=== PATIENT | female | born 2000 | race Caucasian/White ===

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

== ENCOUNTER 2021-12-10 12:34 | Outpatient (CLI) | payer MEDICAID ==
[~2021-12-10] VITALS: Ht 152.4 cm; Wt 82.3 kg
[~2021-12-10 12:34] MED LIST changes: +CEPH500C PO; +ONDA8TAB13 PO; +PHEN-639 PO; +VIBRYD
[2021-12-10 12:52] VITALS: BP 144/90
[2021-12-10 13:16] VITALS: BP 138/96
[2021-12-10 13:16] LABS: BACTERIA,URINE NEGATIVE /HPF; BILIRUBIN,URINE NEGATIVE (NEGATIVE); CLARITY,URINE SL CLOUDY; COLOR,URINE YELLOW; GLUCOSE, URINE (UA) NEGATIVE (NEGATIVE); KETONES,URINE 3+ (NEGATIVE); LEUKOCYTE ESTERASE ,URINE TRACE (NEGATIVE); NITRITE,URINE NEGATIVE (NEGATIVE); PROTEIN,URINE 1+ (NEGATIVE); RBC,URINE 0-2 /HPF
[2021-12-10 13:17] LABS: BASOPHILS % (AUTO) 0 % (0-10); EOSINOPHILS # (AUTO) 0.1 10^3/uL (0.0-0.3); EOSINOPHILS % (AUTO) 1 % (0-10); HEMATOCRIT 35 % (35-52); HEMOGLOBIN 11.6 g/dL (11.5-16.0); LYMPHOCYTES # (AUTO) 1.5 10^3/uL (1.0-4.0); LYMPHOCYTES % (AUTO) 11 % (12-44); MEAN CORPUSCULAR HEMOGLOBIN 26 pg (25-34); MEAN CORPUSCULAR HGB CONC 33 g/dL (32-36); MEAN CORPUSCULAR VOLUME 79 fL (80-99); MEAN PLATELET VOLUME 10.6 fL (9.0-12.2); MONOCYTES # (AUTO) 0.7 10^3/uL (0.0-1.0); MONOCYTES % (AUTO) 5 % (0-12); NEUTROPHILS % (AUTO) 82 % (42-75); PLATELET COUNT 292 10^3/uL (130-400); WHITE BLOOD COUNT 13.4 10^3/uL (4.3-11.0)
[2021-12-10 13:17] LABS: AMORPHOUS SEDIMENT,UR FEW AMOR URATES /LPF
[2021-12-10 13:42] LABS: ALBUMIN 3.2 GM/DL (3.2-4.5); POTASSIUM 3.7 MMOL/L (3.6-5.0)
[2021-12-10 13:46] LABS: BILIRUBIN,TOTAL 0.4 MG/DL (0.1-1.0)
[2021-12-10 13:48] LABS: CREATININE SERUM 0.59 MG/DL (0.60-1.30)
[2021-12-10 13:51] LABS: URIC ACID 5.9 MG/DL (2.6-7.2)
[2021-12-10] MEDS ORDERED: D5 LR IV SOLUTION 1,000 ML IV SCH (14:15)
[2021-12-10 14:25] VITALS: BP 137/85
[2021-12-10 15:40] VITALS: BP 141/78
--- NOTE | 2021-12-11 08:16 | Physician Query-Final Dx ---
GARCIA,12/11/21 0816: Clinic Account Progress/Dx Physician Query: Please give diagnosis Please include # weeks gestation Date of Service Dec 10, 2021 at 12:34 SANTI DOE MD 12/11/21 2016: Clinic Account Progress/Dx DIAGNOSIS: Diagnosis Gestational Hypertension 35 weeks gestation Negative preeclampsia labs GARCIA,JunDec 11, 2021 08:16 SANTI DOE MD Dec 11, 2021 20:16
== END 2021-12-10 16:03 | disposition home or self-care (01) ==
LOC: WSo 12:34
PROVIDERS: ATTEND Family Medicine
DX: O13.3 Gestational [pregnancy-induced] hypertension without significant proteinuria, third trimester (principal); Z3A.35 35 weeks gestation of pregnancy
CPT/HCPCS: 36415; 80053; 81000; 82570; 83615; 84156; 84550; 85025

== ENCOUNTER 2022-01-06 15:18 | Inpatient (IN) | payer MEDICAID ==
[~2022-01-06] VITALS: Ht 152 cm; Wt 87.5 kg
[2022-01-06] VITALS (35 sets, daily range): BP systolic 101–147; BP diastolic 50–94
[2022-01-06] MEDS ORDERED: MINERAL OIL 30 ML TOP PRN (15:45)
[2022-01-06] MEDS ORDERED: LIDOCAINE/EPI 2% 1:200,00 (XYLOCAINE) 10 ML VIAL INJ PRN (15:45)
[2022-01-06 16:24] LABS: BILIRUBIN,URINE NEGATIVE (NEGATIVE); CLARITY,URINE CLEAR; COLOR,URINE YELLOW; GLUCOSE, URINE (UA) NEGATIVE (NEGATIVE); KETONES,URINE NEGATIVE (NEGATIVE); LEUKOCYTE ESTERASE ,URINE TRACE (NEGATIVE); NITRITE,URINE NEGATIVE (NEGATIVE); PROTEIN,URINE TRACE (NEGATIVE)
[2022-01-06 16:30] LABS: BACTERIA,URINE NEGATIVE /HPF; RBC,URINE 0-2 /HPF; SQUAMOUS EPITHELIAL CELL,UR 0-2 /HPF; WBC,URINE 0-2 /HPF
[2022-01-06 16:42] LABS: AMPHETAMINE SCREEN, URINE NEGATIVE (NEGATIVE); BARBITURATE SCREEN URINE NEGATIVE (NEGATIVE); BENZODIAZEPINES SCREEN URINE NEGATIVE (NEGATIVE); CANNABINOID SCREEN, URINE NEGATIVE (NEGATIVE); COCAINE SCREEN URINE NEGATIVE (NEGATIVE); METHADONE STAT NEGATIVE (NEGATIVE); OPIATE SCREEN URINE NEGATIVE (NEGATIVE); OXYCODONE STAT NEGATIVE (NEGATIVE); PROPOXYPHENE STAT NEGATIVE (NEGATIVE); TRICYCLIC ANTIDEPRESSANTS SCRE NEGATIVE (NEGATIVE)
[2022-01-06] MEDS: D5 LR IV SOLUTION 1,000 ML IV SCH (16:45)
[2022-01-06 16:59] LABS: BASOPHILS % (AUTO) 0 % (0-10); EOSINOPHILS # (AUTO) 0.1 10^3/uL (0.0-0.3); EOSINOPHILS % (AUTO) 1 % (0-10); HEMATOCRIT 38 % (35-52); HEMOGLOBIN 12.5 g/dL (11.5-16.0); LYMPHOCYTES # (AUTO) 2.1 10^3/uL (1.0-4.0); LYMPHOCYTES % (AUTO) 14 % (12-44); MEAN CORPUSCULAR HEMOGLOBIN 25 pg (25-34); MEAN CORPUSCULAR HGB CONC 33 g/dL (32-36); MEAN CORPUSCULAR VOLUME 77 fL (80-99); MEAN PLATELET VOLUME 11.7 fL (9.0-12.2); MONOCYTES # (AUTO) 0.9 10^3/uL (0.0-1.0); MONOCYTES % (AUTO) 6 % (0-12); NEUTROPHILS # (AUTO) 11.3 10^3/uL (1.8-7.8); NEUTROPHILS % (AUTO) 78 % (42-75); PLATELET COUNT 310 10^3/uL (130-400); WHITE BLOOD COUNT 14.5 10^3/uL (4.3-11.0)
--- NOTE | 2022-01-06 17:00 | History & Physical-OB ---
OB - Chief Complaint & HPI Date/Time Date of Admission: Date of Admission: Jan 06, 2022 at 15:18 Date seen by a Provider: Jan 06, 2022 Time Seen by a Provider: 14:25 Chief Complaint/History OB-Reason for Admission/Chief: Obstetrical Complication (Pre eclampsia) Hx : 1 Expected Date of Delivery: Jan 13, 2022 Gestational Age in Weeks: 39 Gestational Age in Days: 0 Other reason for admission: H/o GHTN now pre eclampsia with mild features. New onset BURGER the last day. Presented to clinic with blood pressure 160/100 and 1+ protein. Occasional contractions. + FM. Denies LOF, Vag bleeding. Allergies and Home Medications Allergies Coded Allergies: No Known Drug Allergies (Unverified , 09/25/16) Patient Home Medication List Home Medication List Reviewed: Yes No Active Prescriptions or Reported Meds OB - History Hx of Present Ultrasounds: Normal mid trimester US Obstetrical Complications: Pre-eclampsia Medical Complications: Other (Previous drug use) Obstetrical History Hx : 1 Delivery History Hx Blood Disorders: No Patient Past Medical History Substance abuse Social History/Family History Smoking Cessation: Current every day smoker 2nd Hand Smoke Exposure: No Immunizations Tetanus Booster (TDap): Less than 5yrs Rubella: immune RPR/VDRL: Negative GBS Status: Negative HBsAG: Negative OB - Admission Exam Physical Exam HEENT: NCAT Heart: Rhythm Normal Lungs: Clear Abdomen: Gravid Cervical Dilatation: 3cm Effacement: 75% Station: -1 Membranes: Intact Heart Rate: 150's Accelerations: Accelerations Present Decelerations: No Decelerations Short Term Variability: Present [facility] Variability: Average (6-25) Contractions on Admission: None Walter Scoring Tool (Modified) Dilation (cm): 3-4cm (2) Effacement (%): 51-79% (2) Descent/Station: -1,0 (2) Cervix Consistency: Medium(1) Cervix Position: Middle/Mid-Position (1) Walter Score: 7 Labs Laboratory Tests Test 01/06/22 16:00 Range/Units Urine Color YELLOW Urine Clarity CLEAR Urine pH 6.0 5-9 Urine Specific [place] 1.025 H 1.016-1.022 Urine Protein TRACE H NEGATIVE Urine Glucose (UA) NEGATIVE NEGATIVE Urine Ketones NEGATIVE NEGATIVE Urine Nitrite NEGATIVE NEGATIVE Urine Bilirubin NEGATIVE NEGATIVE Urine Urobilinogen 0.2 < = 1.0 MG/DL Urine Leukocyte Esterase TRACE H NEGATIVE Urine RBC (Auto) TRACE-I H NEGATIVE Urine RBC 0-2 /HPF Urine WBC 0-2 /HPF Urine Squamous Epithelial Cells 0-2 /HPF Urine Renal Epithelial Cells NONE /HPF Urine Crystals NONE /LPF Urine Bacteria NEGATIVE /HPF Urine Casts NONE /LPF Urine Mucus SMALL H /LPF Urine Culture Indicated NO Urine Opiates Screen NEGATIVE NEGATIVE Urine Oxycodone Screen NEGATIVE NEGATIVE Urine Methadone Screen NEGATIVE NEGATIVE Urine Propoxyphene Screen NEGATIVE NEGATIVE Urine Barbiturates Screen NEGATIVE NEGATIVE Ur Tricyclic Antidepressants Screen NEGATIVE NEGATIVE Urine Phencyclidine Screen NEGATIVE NEGATIVE Urine Amphetamines Screen NEGATIVE NEGATIVE Urine Methamphetamines Screen NEGATIVE NEGATIVE Urine Benzodiazepines Screen NEGATIVE NEGATIVE Urine Cocaine Screen NEGATIVE NEGATIVE Urine Cannabinoids Screen NEGATIVE NEGATIVE OB - Assessment/Plan/Diagnosis Assessment Assessment: induction of labor Admission Dx Third trimester 39 week gestation GHTN Pre eclampsia with mild features h/o substance abuse d/o Admission Status: Inpatient Order (span 2 midnights) Reason for Inpatient Admission: IOL Plan Other Plan 21 yo G1 @ 39.1 wga here for IOL with pre eclampsia Plan - GBS neg - Pitocin protocol - Monitor blood pressures - CMP, CBC, LDH, Uric Acid, Urine Pro/Cr - Ok with epidural when patient desires Copy Copies To 1: VIVEK HERNANDEZ MD, HOLLY R MD Jan 06, 2022 17:00
[2022-01-06] MEDS ORDERED: NALOXONE 0.4 MG/ML 1 ML (NARCAN) VIAL IV PRN (17:15)
[2022-01-06] MEDS ORDERED: LACTATED RINGERS 1,000 ML IV ONE ×2 (17:15)
[2022-01-06] MEDS ORDERED: fentaNYL INJ 100 MCG/2 ML AMP INJ ONE (17:15)
[2022-01-06 17:16] LABS: ALBUMIN 3.4 GM/DL (3.2-4.5); BILIRUBIN,TOTAL 0.3 MG/DL (0.1-1.0); CALCIUM 8.9 MG/DL (8.5-10.1); CREATININE SERUM 0.66 MG/DL (0.60-1.30); POTASSIUM 3.9 MMOL/L (3.6-5.0); TOTAL PROTEIN 6.8 GM/DL (6.4-8.2); URIC ACID 5.2 MG/DL (2.6-7.2)
[2022-01-06 17:18] LABS: EOSINOPHILS % (MANUAL) 1 %; LYMPHOCYTES % (MANUAL) 12 %; MONOCYTES % (MANUAL) 12 %; NEUTROPHILS % (MANUAL) 75 %; RBC MORPH NORMAL
[2022-01-06] MEDS: OXYTOCIN PRE-MIX DRIP 500 ML IV SCH (17:31)
[2022-01-06] MEDS ORDERED: fentaNYL INJ 100 MCG/2 ML AMP ONE (18:15)
[2022-01-06] MEDS ORDERED: BUPIVACAINE 0.25% 30 ML (SENSORCAINE) VIAL ONE (18:15)
[2022-01-06] MEDS: ONDANSETRON 4 MG/2 ML (SDV) Z0FRAN IV PRN (18:51)
[2022-01-06] MEDS: EPIDURAL (fentaNYL 2 MCG/ML BUPIVA 0.125%)100 ML BAG EPI PRN (20:00)
[2022-01-06] MEDS: CATHETER FLUSH 10 ML SYR IV SCH (22:00)
[2022-01-06] MEDS ORDERED: BUTORPHANOL INJ 2 MG/ML (STADOL) VIAL IV PRN (22:15)
[2022-01-07] VITALS (68 sets, daily range): BP systolic 111–190; BP diastolic 55–159
[2022-01-07] MEDS: D5 LR IV SOLUTION 1,000 ML IV SCH ×3 (00:22→15:47)
[2022-01-07] MEDS: EPIDURAL (fentaNYL 2 MCG/ML BUPIVA 0.125%)100 ML BAG EPI PRN ×2 (03:07→11:08)
[2022-01-07] MEDS: CATHETER FLUSH 10 ML SYR IV SCH ×2 (05:54→18:17)
--- NOTE | 2022-01-07 09:07 | Labor Progress Note ---
Labor Progress Note Labor Progress Note Date Seen by Provider: Jan 07, 2022 Time Seen by Provider: 09:05 Subjective: Pt denies complaints. Epidural in place. Objective: Assessment/Plan: Amber Viera is a (21 /Para 1 / ,Gestational Age (wks)39.1 here for IOL for pre eclampsia with mild features. CEFM/TOCO Continue pitocin protocol Anesthesia: epidural AROM 0845 clear fluid Anticipate vaginal delivery. Vitals - Labs Vital Signs - I&O Vital Signs Date Time Temp Pulse Resp B/P (MAP) Pulse Ox O2 Delivery O2 Flow Rate FiO2 01/07/22 08:00 78 18 119/55 (76) 98 Room Air 01/07/22 07:45 36.2 80 18 122/60 (80) 98 Room Air 01/07/22 07:30 80 18 125/57 (79) 98 Room Air 01/07/22 07:15 72 18 126/58 (80) 94 Room Air 01/07/22 07:00 73 18 121/56 (77) 98 Room Air 01/07/22 06:45 76 18 123/55 (77) 98 Room Air 01/07/22 06:30 36.0 75 18 127/71 (89) 98 Room Air 01/07/22 06:15 72 18 124/67 (86) 97 Room Air 01/07/22 06:00 61 18 124/65 (84) 97 Room Air 01/07/22 05:45 36.3 72 18 128/73 (91) 96 Room Air 01/07/22 05:45 72 18 128/73 (91) 96 Room Air 01/07/22 05:30 86 18 156/88 (110) 98 Room Air 01/07/22 05:15 75 18 119/58 (78) 99 Room Air 01/07/22 05:00 72 18 128/59 (82) 98 Room Air 01/07/22 04:45 63 18 127/61 (83) 99 Room Air 01/07/22 04:30 67 18 123/62 (82) 99 Room Air 01/07/22 04:15 72 18 126/65 (85) 98 Room Air 01/07/22 04:00 68 18 123/69 (87) 98 Room Air 01/07/22 03:45 67 18 124/70 (88) 98 Room Air 01/07/22 03:30 71 18 124/58 (80) 97 Room Air 01/07/22 03:15 75 18 115/58 (77) 99 Room Air 01/07/22 03:00 36.0 73 18 115/56 (75) 99 Room Air 01/07/22 02:45 68 18 123/60 (81) 99 Room Air 01/07/22 02:30 73 18 112/59 (76) 98 Room Air 01/07/22 02:15 71 18 118/57 (77) 98 Room Air 01/07/22 02:00 75 18 121/61 (81) 98 Room Air 01/07/22 01:45 75 18 121/58 (79) 97 Room Air 01/07/22 01:30 70 18 132/59 (83) 99 Room Air 01/07/22 01:15 73 18 116/63 (80) 97 Room Air 01/07/22 01:00 64 18 113/62 (79) 96 Room Air 01/07/22 00:45 69 18 112/58 (76) 97 Room Air 01/07/22 00:30 79 18 123/60 (81) 98 Room Air 01/07/22 00:15 71 18 111/55 (73) 96 Room Air 01/07/22 00:00 70 18 112/61 (78) 97 Room Air 01/06/22 23:45 36.0 90 18 124/69 (87) 99 Room Air 01/06/22 23:30 76 18 114/65 (81) 98 Room Air 01/06/22 23:15 78 18 113/66 (82) 99 Room Air 01/06/22 23:00 85 18 129/68 (88) 98 Room Air 01/06/22 22:45 81 18 128/68 (88) 98 Room Air 01/06/22 22:30 90 18 128/67 (87) 98 Room Air 01/06/22 22:15 93 18 134/62 (86) 99 Room Air 01/06/22 22:00 91 18 129/76 (93) 99 Room Air 01/06/22 21:45 36.0 85 18 112/63 (79) 98 Room Air 01/06/22 21:30 86 18 110/56 (74) 98 Room Air 01/06/22 21:15 68 18 118/64 (82) 98 Room Air 01/06/22 21:00 80 18 116/69 (85) 98 Room Air 01/06/22 20:45 84 18 118/68 (85) 98 Room Air 01/06/22 20:30 81 18 115/66 (82) 98 Room Air 01/06/22 20:15 83 18 126/69 (88) 99 Room Air 01/06/22 20:00 36.0 90 18 124/71 (88) 100 Room Air 01/06/22 19:45 91 18 124/71 (88) 100 Room Air 01/06/22 19:30 88 18 118/65 (82) 99 Room Air 01/06/22 19:15 82 18 120/75 (90) 98 Room Air 01/06/22 19:00 36.6 68 18 111/62 (78) 98 Room Air 01/06/22 18:57 79 18 111/62 (78) 98 Room Air 01/06/22 18:53 84 18 101/50 (67) 98 Room Air 01/06/22 18:45 68 18 124/64 (84) 97 Room Air 01/06/22 18:40 88 18 120/55 (76) 97 Room Air 01/06/22 18:35 98 18 135/78 (97) 97 Room Air 01/06/22 18:34 86 18 136/71 (92) 97 Room Air 01/06/22 18:32 80 18 138/84 (102) 100 Room Air 01/06/22 18:30 83 18 139/85 (103) 100 Room Air 01/06/22 18:25 89 18 147/87 (107) 100 Room Air 01/06/22 18:20 104 18 147/94 (111) 98 Room Air 01/06/22 18:15 80 18 136/61 (86) 97 Room Air 01/06/22 18:00 36.9 81 18 137/78 (97) 97 Room Air 01/06/22 17:45 87 18 136/76 (96) 98 Room Air 01/06/22 17:30 87 18 123/68 (86) 98 Room Air 01/06/22 17:15 37.0 90 18 132/76 (94) 97 Room Air 01/06/22 17:15 37.0 90 18 97 Room Air I & O 01/07/22 07:00 Intake Total 1000 ml Balance 1000 ml Labs Laboratory Tests 01/06/22 16:00: Urine Color YELLOW, Urine Clarity CLEAR, Urine pH 6.0, Urine Specific [place] 1.025H, Urine Protein 33H, Urine Glucose (UA) NEGATIVE, Urine Ketones NEGATIVE, Urine Nitrite NEGATIVE, Urine Bilirubin NEGATIVE, Urine Urobilinogen 0.2, Urine Leukocyte Esterase TRACEH, Urine RBC (Auto) TRACE-IH, Urine RBC 0-2, Urine WBC 0-2, Urine Squamous Epithelial Cells 0-2, Urine Renal Epithelial Cells NONE, Urine Crystals NONE, Urine Bacteria NEGATIVE, Urine Casts NONE, Urine Mucus SMALLH, Urine Culture Indicated NO, Urine Creatinine 234H, Urine Protein/Creatinine Ratio 0.14, Urine Opiates Screen NEGATIVE, Urine Oxycodone Screen NEGATIVE, Urine Methadone Screen NEGATIVE, Urine Propoxyphene Screen NEGATIVE, Urine Barbiturates Screen NEGATIVE, Ur Tricyclic Antidepressants Screen NEGATIVE, Urine Phencyclidine Screen NEGATIVE, Urine Amphetamines Screen NEGATIVE, Urine Methamphetamines Screen NEGATIVE, Urine Benzodiazepines Screen NEGATIVE, Urine Cocaine Screen NEGATIVE, Urine Cannabinoids Screen NEGATIVE 01/06/22 16:45: White Blood Count 14.5H, Red Blood Count 4.94, Hemoglobin 12.5, Hematocrit 38, Mean Corpuscular Volume 77L, Mean Corpuscular Hemoglobin 25, Mean Corpuscular Hemoglobin Concent 33, Red Cell Distribution Width 14.9H, Platelet Count 310, Mean Platelet Volume 11.7, Immature Granulocyte % (Auto) 1, Neutrophils (%) (Auto) 78H, Lymphocytes (%) (Auto) 14, Monocytes (%) (Auto) 6, Eosinophils (%) (Auto) 1, Basophils (%) (Auto) 0, Neutrophils # (Auto) 11.3H, Lymphocytes # (Auto) 2.1, Monocytes # (Auto) 0.9, Eosinophils # (Auto) 0.1, Basophils # (Auto) 0.0, Immature Granulocyte # (Auto) 0.1, Neutrophils % (Manual) 75, Lymphocytes % (Manual) 12, Monocytes % (Manual) 12, Eosinophils % (Manual) 1, Blood Morphology Comment NORMAL, Sodium Level 136, Potassium Level 3.9, Chloride Level 107, Carbon Dioxide Level 19L, Anion Gap 10, Blood Urea Nitrogen 11, Creatinine 0.66, Estimat Glomerular Filtration Rate 126, BUN/Creatinine Ratio 17, Glucose Level 90, Uric Acid 5.2, Calcium Level 8.9, Corrected Calcium 9.4, Total Bilirubin 0.3, Aspartate Amino Transf (AST/SGOT) 17, Alanine Aminotransferase (ALT/SGPT) 12, Alkaline Phosphatase 167H, Lactate Dehydrogenase 205, Total Protein 6.8, Albumin 3.4 VIVEK HERNANDEZ MD Jan 07, 2022 09:06
[2022-01-07] MEDS: ONDANSETRON 4 MG/2 ML (SDV) Z0FRAN IV PRN (09:28)
[2022-01-07] MEDS: OXYTOCIN PRE-MIX DRIP 500 ML IV SCH ×3 (16:36→18:22)
--- NOTE | 2022-01-07 17:33 | OB Labor & Delivery Record ---
Vag Delivery Note Vag Delivery Note Date of Delivery: 01/07/22 Preoperative Diagnosis: Amber Viera is a (21 /Para 1 / , Gestational Age (wks)39.1 wga here for IOL for pre eclampsia Postoperative Diagnosis: Same Surgeon: VIVEK HERNANDEZ MD Parent Trainer: None Anesthesia: Epidural Delivery Type: @ 7422 Findings: Viable male , apgars 8/9, weight 7#4, 3290 grams Lacerations: 2 degree laceration and left labial vertical laceration Intact placenta with 3 vessel cord. No nuchal cord, body cord or shoulder dystocia Cytotec 800 mcg placed for hemorrhage prophylaxis Estimated Blood Loss: 200 ml Complications: None Condition: Stable Description of Procedure: The patient is a 21 year old female who presented for IOL for medical complications. She was admitted and informed consent was obtained. Her labor course was unremarkable. She progressed to complete dilatation and began to push. She was then set up for delivery. The 's head was delivered atraumatically in the CLAIRE position. The shoulders and remainder of the 's body were then delivered without difficulty. Upon delivery, the head was held below the level of the perineum and the mouth and nares were bulb suctioned. The cord was doubly clamped and cut after 3 min delay and the was attended to by the pediatric staff on maternal abdomen. An intact placenta with 3-vessel cord delivered via Danelle and there was found to be minimal bleeding.~ Vigorous fundal massage was performed and the fundus was found to be firm. IV oxytocin was given. Examination of the vagina and perineum revealed a 2nd degree perineal and left labial laceration repaired in the usual fashion with 3-0 vicryl suture. Following the repair, sponge, instrument and needle counts were correct. Mom and baby were both in stable condition in the labor suite. Vitals - Labs Vital Signs - I&O Vital Signs Date Time Temp Pulse Resp B/P (MAP) Pulse Ox O2 Delivery O2 Flow Rate FiO2 01/07/22 16:36 117 18 140/85 (103) Room Air 01/07/22 16:19 38.1 121 18 179/95 (123) Room Air 01/07/22 16:15 120 18 135/86 (102) Room Air 01/07/22 16:00 134 190/159 (169) Room Air 01/07/22 15:45 Room Air 01/07/22 15:30 Room Air 01/07/22 15:15 90 18 141/84 (103) Room Air 01/07/22 15:00 36.2 84 18 133/82 (99) Room Air 01/07/22 14:45 80 18 134/76 (95) Room Air 01/07/22 14:30 85 18 124/76 (92) Room Air 01/07/22 14:15 76 18 136/65 (88) Room Air 01/07/22 14:00 86 18 130/77 (94) Room Air 01/07/22 13:45 82 18 138/77 (97) Room Air 01/07/22 13:30 36.9 84 18 141/65 (90) Room Air 01/07/22 13:15 Room Air 01/07/22 13:00 93 18 133/77 (95) Room Air 01/07/22 12:45 94 18 139/76 (97) Room Air 01/07/22 12:30 93 18 156/68 (97) Room Air 01/07/22 12:15 36.8 93 18 138/80 (99) Room Air 01/07/22 12:00 90 18 126/74 (91) Room Air 01/07/22 11:45 106 18 124/72 (89) Room Air 01/07/22 11:30 95 18 130/72 (91) Room Air 01/07/22 11:15 75 18 111/56 (74) Room Air 01/07/22 11:00 73 18 114/62 (79) Room Air 01/07/22 10:45 92 18 126/74 (91) Room Air 01/07/22 10:30 92 18 125/71 (89) Room Air 01/07/22 10:15 96 18 130/76 (94) Room Air 01/07/22 10:00 81 18 133/85 (101) Room Air 01/07/22 09:45 78 18 125/56 (79) Room Air 01/07/22 09:30 81 18 124/78 (93) Room Air 01/07/22 09:15 36.4 83 18 130/78 (95) Room Air 01/07/22 09:00 82 18 130/71 (90) Room Air 01/07/22 08:45 Room Air 01/07/22 08:30 78 18 129/84 (99) Room Air 01/07/22 08:00 78 18 119/55 (76) 98 Room Air 01/07/22 07:45 36.2 80 18 122/60 (80) 98 Room Air 01/07/22 07:30 80 18 125/57 (79) 98 Room Air 01/07/22 07:15 72 18 126/58 (80) 94 Room Air 01/07/22 07:00 73 18 121/56 (77) 98 Room Air 01/07/22 06:45 76 18 123/55 (77) 98 Room Air 01/07/22 06:30 36.0 75 18 127/71 (89) 98 Room Air 01/07/22 06:15 72 18 124/67 (86) 97 Room Air 01/07/22 06:00 61 18 124/65 (84) 97 Room Air 01/07/22 05:45 36.3 72 18 128/73 (91) 96 Room Air 01/07/22 05:45 72 18 128/73 (91) 96 Room Air 01/07/22 05:30 86 18 156/88 (110) 98 Room Air 01/07/22 05:15 75 18 119/58 (78) 99 Room Air 01/07/22 05:00 72 18 128/59 (82) 98 Room Air 01/07/22 04:45 63 18 127/61 (83) 99 Room Air 01/07/22 04:30 67 18 123/62 (82) 99 Room Air 01/07/22 04:15 72 18 126/65 (85) 98 Room Air 01/07/22 04:00 68 18 123/69 (87) 98 Room Air 01/07/22 03:45 67 18 124/70 (88) 98 Room Air 01/07/22 03:30 71 18 124/58 (80) 97 Room Air 01/07/22 03:15 75 18 115/58 (77) 99 Room Air 01/07/22 03:00 36.0 73 18 115/56 (75) 99 Room Air 01/07/22 02:45 68 18 123/60 (81) 99 Room Air 01/07/22 02:30 73 18 112/59 (76) 98 Room Air 01/07/22 02:15 71 18 118/57 (77) 98 Room Air 01/07/22 02:00 75 18 121/61 (81) 98 Room Air 01/07/22 01:45 75 18 121/58 (79) 97 Room Air 01/07/22 01:30 70 18 132/59 (83) 99 Room Air 01/07/22 01:15 73 18 116/63 (80) 97 Room Air 01/07/22 01:00 64 18 113/62 (79) 96 Room Air 01/07/22 00:45 69 18 112/58 (76) 97 Room Air 01/07/22 00:30 79 18 123/60 (81) 98 Room Air 01/07/22 00:15 71 18 111/55 (73) 96 Room Air 01/07/22 00:00 70 18 112/61 (78) 97 Room Air 01/06/22 23:45 36.0 90 18 124/69 (87) 99 Room Air 01/06/22 23:30 76 18 114/65 (81) 98 Room Air 01/06/22 23:15 78 18 113/66 (82) 99 Room Air 01/06/22 23:00 85 18 129/68 (88) 98 Room Air 01/06/22 22:45 81 18 128/68 (88) 98 Room Air 01/06/22 22:30 90 18 128/67 (87) 98 Room Air 01/06/22 22:15 93 18 134/62 (86) 99 Room Air 01/06/22 22:00 91 18 129/76 (93) 99 Room Air 01/06/22 21:45 36.0 85 18 112/63 (79) 98 Room Air 01/06/22 21:30 86 18 110/56 (74) 98 Room Air 01/06/22 21:15 68 18 118/64 (82) 98 Room Air 01/06/22 21:00 80 18 116/69 (85) 98 Room Air 01/06/22 20:45 84 18 118/68 (85) 98 Room Air 01/06/22 20:30 81 18 115/66 (82) 98 Room Air 01/06/22 20:15 83 18 126/69 (88) 99 Room Air 01/06/22 20:00 36.0 90 18 124/71 (88) 100 Room Air 01/06/22 19:45 91 18 124/71 (88) 100 Room Air 01/06/22 19:30 88 18 118/65 (82) 99 Room Air 01/06/22 19:15 82 18 120/75 (90) 98 Room Air 01/06/22 19:00 36.6 68 18 111/62 (78) 98 Room Air 01/06/22 18:57 79 18 111/62 (78) 98 Room Air 01/06/22 18:53 84 18 101/50 (67) 98 Room Air 01/06/22 18:45 68 18 124/64 (84) 97 Room Air 01/06/22 18:40 88 18 120/55 (76) 97 Room Air 01/06/22 18:35 98 18 135/78 (97) 97 Room Air 01/06/22 18:34 86 18 136/71 (92) 97 Room Air 01/06/22 18:32 80 18 138/84 (102) 100 Room Air 01/06/22 18:30 83 18 139/85 (103) 100 Room Air 01/06/22 18:25 89 18 147/87 (107) 100 Room Air 01/06/22 18:20 104 18 147/94 (111) 98 Room Air 01/06/22 18:15 80 18 136/61 (86) 97 Room Air 01/06/22 18:00 36.9 81 18 137/78 (97) 97 Room Air 01/06/22 17:45 87 18 136/76 (96) 98 Room Air I & O 01/07/22 07:00 Intake Total 1000 ml Balance 1000 ml VIVEK HERNANDEZ MD Jan 07, 2022 17:33
[2022-01-07] MEDS ORDERED: BENZOCAINE/MENTHOL (DERMOPLAST) 56 ML CAN TP PRN (17:45)
[2022-01-07] MEDS ORDERED: WITCH HAZEL(TUCKS) 40 EA JAR TOP PRN (17:45)
[2022-01-07] MEDS ORDERED: TETANUS,DIPTH,PERTUSS P/F (BOOSTRIX) 0.5 ML VIAL IM ONE (17:45)
[2022-01-07] MEDS ORDERED: MEASLES,MUMPS,RUBELLA 1 EA INJ SQ ONE (17:45)
[2022-01-07] MEDS: IBUPROFEN 600 MG (MOTRIN) TAB PO SCH (18:22)
[2022-01-07] MEDS: ACETAMINOPHEN 500 MG TAB (TYLENOL) PO SCH (18:22)
[2022-01-07] MEDS ORDERED: CATHETER FLUSH 10 ML SYR IV SCH (22:00)
[2022-01-07] MEDS: DOCUSATE SODIUM 100 MG (COLACE) CAP PO SCH (22:24)
[2022-01-08 03:15] VITALS: BP 153/81
[2022-01-08] MEDS: ACETAMINOPHEN 500 MG TAB (TYLENOL) PO SCH ×5 (03:15→23:26)
[2022-01-08] MEDS: IBUPROFEN 600 MG (MOTRIN) TAB PO SCH ×5 (03:15→23:26)
[2022-01-08 09:55] VITALS: BP 156/82
[2022-01-08] MEDS: DOCUSATE SODIUM 100 MG (COLACE) CAP PO SCH ×2 (09:59→23:26)
[2022-01-08 11:23] LABS: BASOPHILS % (AUTO) 0 % (0-10); EOSINOPHILS # (AUTO) 0.1 10^3/uL (0.0-0.3); EOSINOPHILS % (AUTO) 1 % (0-10); HEMATOCRIT 29 % (35-52); HEMOGLOBIN 9.4 g/dL (11.5-16.0); LYMPHOCYTES # (AUTO) 2.6 10^3/uL (1.0-4.0); LYMPHOCYTES % (AUTO) 16 % (12-44); MEAN CORPUSCULAR HEMOGLOBIN 25 pg (25-34); MEAN CORPUSCULAR HGB CONC 32 g/dL (32-36); MEAN CORPUSCULAR VOLUME 78 fL (80-99); MEAN PLATELET VOLUME 11.9 fL (9.0-12.2); MONOCYTES # (AUTO) 1.2 10^3/uL (0.0-1.0); MONOCYTES % (AUTO) 8 % (0-12); NEUTROPHILS % (AUTO) 75 % (42-75); PLATELET COUNT 249 10^3/uL (130-400)
[2022-01-08 13:00] VITALS: BP 142/91
--- NOTE | 2022-01-08 13:35 | Anesthesia-Regional Post-Op ---
Regional Patient Condition Mental Status: Alert, Oriented x3 Circulation: Same as Pre-Op Headache: Absent Sensation: Full Recovery Motor Block: Absent Post Op Complications Complications None Follow Up Care/Instructions Patient Instructions None needed. Anesthesia/Patient Condition Patient is doing well, no complaints, stable vital signs, no apparent adverse anesthesia problems. No complications reported per nursing. CINTHYA LARRY CRNA Jan 08, 2022 13:34
[2022-01-08 15:45] VITALS: BP 139/89
[2022-01-08] MEDS: FERROUS SULF 325 MG (IRON) TAB PO SCH (18:00)
--- NOTE | 2022-01-08 18:00 | Postpartum Progress Note ---
Note Note Day # 1 Subjective: Patient is without complaints. Ambulating, voiding. Tolerating a regular diet without nausea or vomiting. Normal lochia. Pain is well controlled with oral pain medications. Breast feeding. She is having some perineal tenderness Objective: Physical Exam: General - Alert and oriented, no apparent distress Abdomen - Soft, appropriately tender to palpation, non-distended, fundus firm at umbilicus Extremities - no edema, negative Jeffrey's bilaterally : Healing well, some swelling, repair intact Assessment: 21 yo G1 now P1 mother post- day # 1, status post uncomplicated vaginal delivery. Recovering well, hemodynamically stable GHTN Post anemia from acute blood loss 2nd degree perineal laceration Plan: Routine care. Encourage breast feeding. Encourage ambulation. Continue to monitor blood pressure Ferrous sulfate supplementation. Plan for discharge tomorrow with f.u 6 weeks with [facility] Vitals - Labs Vital Signs - I&O Vital Signs Date Time Temp Pulse Resp B/P (MAP) Pulse Ox O2 Delivery O2 Flow Rate FiO2 01/08/22 13:00 36.4 88 18 142/91 (108) Room Air 01/08/22 09:55 36.4 85 18 156/82 (106) 97 Room Air 01/08/22 03:15 36.8 75 18 153/81 (105) 95 Room Air 01/07/22 22:24 36.4 80 18 138/83 (101) 95 Room Air I & O 01/08/22 07:00 Intake Total 2550 ml Balance 2550 ml Labs Laboratory Tests 01/08/22 10:54: White Blood Count 16.0H, Red Blood Count 3.74L, Hemoglobin 9.4#L, Hematocrit 29L , Mean Corpuscular Volume 78L, Mean Corpuscular Hemoglobin 25, Mean Corpuscular Hemoglobin Concent 32, Red Cell Distribution Width 15.0H, Platelet Count 249, Mean Platelet Volume 11.9, Immature Granulocyte % (Auto) 1, Neutrophils (%) (Auto) 75, Lymphocytes (%) (Auto) 16, Monocytes (%) (Auto) 8, Eosinophils (%) (Auto) 1, Basophils (%) (Auto) 0, Neutrophils # (Auto) 12.0H, Lymphocytes # (Auto) 2.6, Monocytes # (Auto) 1.2H, Eosinophils # (Auto) 0.1, Basophils # (Auto) 0.0, Immature Granulocyte # (Auto) 0.1 VIVEK HERNANDEZ MD Jan 08, 2022 18:00
[2022-01-08 22:00] VITALS: BP 145/81
[2022-01-09 04:30] VITALS: BP 135/76
[2022-01-09] MEDS: IBUPROFEN 600 MG (MOTRIN) TAB PO SCH ×2 (06:04→11:41)
[2022-01-09] MEDS: ACETAMINOPHEN 500 MG TAB (TYLENOL) PO SCH ×2 (06:04→11:42)
--- NOTE | 2022-01-09 10:43 | Discharge Summary ---
Diagnosis/Chief Complaint Date of Admission Jan 06, 2022 at 15:18 Date of Discharge 01/09/22 Admission Diagnosis Admission Diagnosis Third trimester 39 week gestation Gestational HTN Discharge Diagnosis Uncomplicated Post anemia with acute blood loss 2nd degree laceration Gestational HTN Discharge Summary-Simple/Stand Procedures Epidural placement Discharge Physical Examination Allergies: Coded Allergies: No Known Drug Allergies (Unverified , 09/25/16) Vitals & I&Os Vital Sign - Last 12Hours Date Time Temp Pulse Resp B/P (MAP) Pulse Ox O2 Delivery O2 Flow Rate FiO2 01/09/22 04:30 36.3 86 20 135/76 (95) 96 Room Air General Appearance: Alert, Oriented X3, Cooperative, No Acute Distress HEENT: Mucous Memb Moist/[place] Respiratory: Clear to Auscultation, Normal Air Movement Cardiovascular: Regular Rate, No Murmurs Abdominal: Soft, No Tenderness, No Masses, Other (Fundus firm and below umbilicus) Extremities: Other (trace swelling) Neuro: Normal Speech Psych/Mental Status: Mental Status NL, Mood NL Hospital Course See final discharge diagnosis. Discussion & Recommendations 21 yo G1 now P1 delivered @ 39 weeks due to Gestational HTN. Uncomplicated . Post anemia will go home on iron. Discharge Condition at discharge stable Instructions to patient/family Please see electronic discharge instructions given to patient. Discharge Medications Reviewed and agree with Discharge Medication list on patient's Discharge Instruction sheet VIVEK HERNANDEZ MD Jan 09, 2022 10:43
[2022-01-09] MEDS ORDERED: IBUP-844 PO (10:44)
[2022-01-09] MEDS ORDERED: FERR325T24 PO (10:44)
--- NOTE | 2022-01-09 10:45 | Discharge Summary ---
Discharge Inst-[facility] Reconcile Patient Problems Problems Reviewed?: Yes Depart Medications New, Converted or Re-Newed RX: Transmitted to Pharmacy New Medications: Ferrous Sulfate (Ferosul) 325 Mg (65 Mg Iron) Tablet 325 MG PO DAILY@0700, #30 TAB Ibuprofen (Ibu) 600 Mg Tablet 600 MG PO Q6H, #90 TAB Follow Up/Instructions Goal/Follow Up: 6 weeks with [facility] Activity Activity: Activity as Tolerated Driving Instructions: You May Drive NO SMOKING: NO SMOKING Nothing Inside Vagina: No Douching, No Center, No Tampons Diet Discharge Diet: No Restrictions Symptoms to Report to : Swelling Increased, Bleeding Excessive, Fever Over 101 Degrees F, Heart Beat Irreg/Pounding, Shortness of Breath Copies To 1: VIVEK HERNANDEZ MD, HOLLY R MD Jan 09, 2022 10:45
[2022-01-09] MEDS: DOCUSATE SODIUM 100 MG (COLACE) CAP PO SCH (11:41)
[2022-01-09] MEDS: FERROUS SULF 325 MG (IRON) TAB PO SCH (11:41)
[2022-01-09 11:44] VITALS: BP 148/89
== END 2022-01-09 13:00 | disposition home or self-care (01) | DRG 806 ==
LOC: LDRP 15:18
PROVIDERS: ADMIT Family Medicine; ATTEND Family Medicine
PROC: 10E0XZZ Delivery of Products of Conception, External Approach (ICD-10-PCS; principal; 2022-01-07)
PROC: 0KQM0ZZ Repair Perineum Muscle, Open Approach (ICD-10-PCS; 2022-01-07)
PROC: 3E033VJ Introduction of Other Hormone into Peripheral Vein, Percutaneous Approach (ICD-10-PCS; 2022-01-07)
DX: O14.04 Mild to moderate pre-eclampsia, complicating childbirth (principal); D62 Acute posthemorrhagic anemia; Z37.0 Single live birth; O70.1 Second degree perineal laceration during delivery; O90.81 Anemia of the puerperium; O99.333 Smoking (tobacco) complicating pregnancy, third trimester; F17.200 Nicotine dependence, unspecified, uncomplicated; Z3A.39 39 weeks gestation of pregnancy
CPT/HCPCS: 36415; 80053; 80306; 81000; 82570; 83615; 84156; 84550; 85007; 85025; 85027; 86850; 86900; 86901